=== PATIENT | male | born 1975 | race Two or more races ===

== ENCOUNTER 2017-03-30 14:45 | Emergency (ER) | payer MEDICAID, OTHER ==
[~2017-03-30] VITALS: Ht 175.3 cm; Wt 83.8 kg
[2017-03-30] MEDS ORDERED: SODIUM CHLORIDE 0.9% 1,000 ML IV ONE (15:11)
[2017-03-30] MEDS ORDERED: SODIUM CHLORIDE 0.9% 1,000ML IVBOLUS ONE (15:30)
[2017-03-30 15:47] LABS: BLOOD UREA NITROGEN 12 mg/dL (7-18)
[2017-03-30 16:41] VITALS: BP 125/79
== END 2017-03-30 16:43 | disposition home or self-care (01) ==
LOC: ED 16:00
DX: R53.1 Weakness (principal)
CPT/HCPCS: 36415; 80048; 82040; 85025; 93005; 99285